=== PATIENT | female | born 1940 | race Caucasian/White ===

== ENCOUNTER → 2016-08-15 | Outpatient (CLI) | payer OTHER ==
[~2016-08-15] MED LIST: ACTOS 30 MG TAB30 MG PO; ALPRAZOLAM 0.50.5 M1 PO; AMARYL4 MG PO; AMITRIPTYLINE H10 M1; B COMPLEX-VITA1 EACH; CALCIUM 500 +1 EAC6; CALCIUM 600 +1 EAC1 PO; CHLOR-TRIMETON PO; CLARITIN10 MG PO; COLACE 100 MG100 MG PO; COLACE100 MG PO; CYMBALTA30 MG; DESYREL100 MG PO; EFFEXOR XR75 MG PO; FISH OIL 1,0001 EAC5 PO; FISH OIL 1,001000 M2 PO; GLUCOPHAGE500 MG PO; HUMALOG100 UNIT/1 SUBQ; HYDRALAZINE 2525 MG PO; HYDROCODON-ACE1 EAC7 PO; JANUVIA100 MG PO; LEVEMIR FL100 UNIT/2 SQ; LEXAPRO20 MG PO; LISINOPRIL10 MG; MELATONIN3 MG PO; METOPROLOL SUCC50 MG PO; MOTION RELIEF25 MG; MOTION RELIEF25 MG PO; MULTIVITAMINS PO; OMEPRAZOLE20 M2 PO; ONDANSETRON HCL4 M1 PO; OXYCONTIN10 M1 PO; PANTOPRAZOLE SO40 M1 PO; REQUIP1 MG PO; SIMVASTATIN40 MG PO; SUPER B COMPLE150 MG PO; VENLAFAXIN75 MG/1 T2 PO; VENLAFAXINE HC150 M1 PO; VITAMIN E1000 UNI3 PO; XANAX 0.5 MG0.5 M1 PO
[2016-08-15 15:29] LABS: ABG SAMPLE TYPE ARTERIAL; BE(vivo) -1.6 mmol/L (-2 to +3); HCO3 22.6 mmol/L (22.0-26.0); O2(CT) 18.9 mL/dL (15.0-23.0); O2Hb 92.9 % (92.0-98.0); PCO2 36.5 mmHg (35.0-45.0); PO2 70.3 mmHg (80.0-100.0); pH 7.409 (7.360-7.450); sO2 94.4 % (92.0-98.0); tCO2 23.7 mmol/L (24.0-30.0)
[2016-08-15 15:35] LABS: LACTATE 3.61 mmol/L (0.5-2.0); STICK SITE L.RADIAL
== END ==
LOC: PUL 14:18
PROVIDERS: Internal Medicine Pulmonary Disease
DX: R06.00 Dyspnea, unspecified (principal)

== ENCOUNTER → 2016-10-14 | Outpatient (CLI) | payer OTHER | LOC: NUC 02:04 | DX: S92.901D Unspecified fracture of right foot, subsequent encounter for fracture with routine healing (principal); S62.101D Fracture of unspecified carpal bone, right wrist, subsequent encounter for fracture with routine healing; S92.902D Unspecified fracture of left foot, subsequent encounter for fracture with routine healing; Z78.0 Asymptomatic menopausal state; X58.XXXA Exposure to other specified factors, initial encounter ==

== ENCOUNTER → 2017-08-20 | Outpatient (CLI) | payer OTHER | LOC: RAD 10:54 | DX: S22.31XA Fracture of one rib, right side, initial encounter for closed fracture (principal); W19.XXXA Unspecified fall, initial encounter; Y93.89 Activity, other specified; Y92.89 Other specified places as the place of occurrence of the external cause; Y99.8 Other external cause status ==

== ENCOUNTER 2019-02-16 11:27 | Emergency (ER) | payer OTHER ==
[~2019-02-16] VITALS: Ht 162.6 cm; Wt 74.8 kg
[2019-02-16 11:42] LABS: HEMATOCRIT 43.4 % (37.0-47.0); HEMOGLOBIN 14.4 gm/dL (12.0-15.0); MCH 28.2 pg (26.0-34.0); MCHC 33.2 g/dL (28.0-37.0); RBC 5.1 mil/uL (4.20-5.00); RDW 15.1 % (10.5-14.5); WBC 13.6 thou/uL (4.0-11.0)
[2019-02-16 11:50] LABS: CREATININE 0.8 mg/dL (0.6-1.0); POTASSIUM 3.9 mmol/L (3.5-5.1)
[2019-02-16 12:21] LABS: URINE BILIRUBIN NEGATIVE (Negative); URINE BLOOD NEGATIVE (Negative); URINE CLARITY CLEAR; URINE COLOR YELLOW; URINE GLUCOSE-RANDOM* 3+ (Negative); URINE KETONES TRACE (Negative); URINE LEUKOCYTES-REFLEX NEGATIVE (Negative); URINE NITRITE-REFLEX NEGATIVE (Negative); URINE PROTEIN (DIPSTICK) NEGATIVE (Negative); URINE SPECIFIC GRAVITY 1.015 (1.005-1.035)
[2019-02-16] MEDS ORDERED: ARICEPT 5 MG TAB5 MG PO (12:25)
[2019-02-16] MEDS ORDERED: ASPIR 8181 MG PO (12:25)
[2019-02-16] MEDS ORDERED: METFORMIN HCL500 MG PO (12:26)
[2019-02-16] MEDS ORDERED: MILK OF MA2400 MG/11 PO (12:27)
[2019-02-16] MEDS ORDERED: ZANTAC 150MG T150 MG PO (12:27)
[2019-02-16] MEDS ORDERED: SENNA8.6 MG PO (12:28)
[2019-02-16] MEDS ORDERED: B12INJ IM (12:29)
[2019-02-16] MEDS ORDERED: TRADJENTA5 MG (12:29)
[2019-02-16] MEDS ORDERED: TYLENOL325 MG PO (12:29)
[2019-02-16 13:18] VITALS: BP 151/87
== END 2019-02-16 13:20 ==
LOC: ER 11:27
PROVIDERS: Emergency Medicine
DX: S00.12XA Contusion of left eyelid and periocular area, initial encounter (principal); E11.9 Type 2 diabetes mellitus without complications; F17.210 Nicotine dependence, cigarettes, uncomplicated; Z88.5 Allergy status to narcotic agent; Z79.899 Other long term (current) drug therapy; Z79.82 Long term (current) use of aspirin; Z79.4 Long term (current) use of insulin; Z98.890 Other specified postprocedural states; Z90.710 Acquired absence of both cervix and uterus; W05.0XXA Fall from non-moving wheelchair, initial encounter; Y93.89 Activity, other specified; Y92.89 Other specified places as the place of occurrence of the external cause; Y99.9 Unspecified external cause status